=== PATIENT | male | born 1985 | race Caucasian/White ===

== ENCOUNTER → 2019-01-01 | Outpatient (CLI) | payer BC ==
--- NOTE | 2019-01-01 10:02 | Diagnostic Imaging Report ---
INDICATION: Right lower quadrant pain. Time of exam: 9:33 AM The bowel gas pattern is unremarkable. No obstruction is identified. No pathologic calcifications are seen. No definite free air is detected. IMPRESSION: No acute feature is identified. Dictated by: Dictated on workstation # [id number]
== END ==
LOC: RAD 09:23
PROVIDERS: ATTEND Physician Assistant
DX: R10.31 Right lower quadrant pain (principal)
CPT/HCPCS: 74019